=== PATIENT | female | born 1990 | race Caucasian/White ===

== ENCOUNTER 2018-04-06 15:58 | Emergency (ER) | payer OTHER ==
[~2018-04-06] VITALS: Ht 167.6 cm; Wt 99.8 kg
[2018-04-06 16:01] VITALS: BP 140/91
== END 2018-04-06 16:41 | disposition home or self-care (01) ==
LOC: ER 15:58
DX: L72.3 Sebaceous cyst (principal); Z48.01 Encounter for change or removal of surgical wound dressing